=== PATIENT | male | born 2000 | race Caucasian/White ===

== ENCOUNTER 2023-11-28 00:18 | Emergency (ER) | payer OTHER ==
[~2023-11-28] VITALS: Ht 177.8 cm; Wt 95.3 kg
[2023-11-28 00:39] VITALS: BP_SYST 168; PULSE 114; RESP 18; TEMP 98.7; O2SAT 98
[2023-11-28 01:29] VITALS: RESP 18
== END 2023-11-28 01:25 | disposition home or self-care (01) ==
LOC: SED 00:18
DX: F10.129 Alcohol abuse with intoxication, unspecified (principal); Y90.6 Blood alcohol level of 120-199 mg/100 ml
CPT/HCPCS: 99283